=== PATIENT | male | born 1945 | race Caucasian/White ===

== ENCOUNTER → 2017-02-27 | Day surgery (SDC) | payer MEDICARE, BC ==
[~2017-02-27] MED LIST: AMIT25TA9 PO; CIAL5TAB PO; DICL1GEL TOPICAL; EXTRTAB5 PO; FELO5TAB PO; LIDOCAINE HCL 1% PF 30 ML VIAL NERV BLOCK ONE; META800T81 PO; MULT-6 PO; OMEP20TA PO; PROPOFOL 200 MG/20 ML AMP IV ONE; SODIUM CHLORIDE 0.9% 10 ML VIAL ONE; TAMS5CAP PO; TIZA4TAB PO; TRIAMCINOLONE ACETONIDE 40 MG/ML VIAL NERV BLOCK ONE; VYTO10TA8 PO; methylPREDNISolone ACETATE 40 MG/ML VIAL NERV BLOCK ONE
--- NOTE | 2017-02-28 06:52 | M6 ---
cc: LISA KRAMER M.D. DATE: 02/27/2017 DATE OF : 1945 PROCEDURE Right piriformis / sciatic nerve block. History and physical was completed and signed. Consent was signed. Procedure site was marked. Medications were listed and reconciled. Pain score was recorded. Allergies were noted. Time out was taken. Fluoroscopy time was recorded where applicable. Sedation was administered or directed by Dr. Kramer. The patient was given oxygen. The patient was monitored by a registered nurse. Total procedure time was greater than 15 minutes. IV was started, blood pressure cuff, pulse ox screed operator and EKG were applied. The patient was placed in the prone position on a Tom table sedated with small amounts of propofol titrated to effect. Vital signs were monitored and remained stable throughout the procedure. The right hip and buttocks area was prepped with alcohol and 10% Betadine solution and draped with sterile drapes. Fluoroscopy was used to visualize the sciatic notch and the right acetabulum. Then a 3-1/2-inch 22-gauge spinal needle was advanced down to the cephalad portion of the acetabulum slightly lateral to the sciatic notch. There was negative aspiration for blood or any other type of fluid and the patient was given 10 mL of half percent Xylocaine 40 mg of Depo-Medrol and 20 mg of Kenalog. Following the procedure the patient was taken to the recovery room with stable vital signs neurologically intact as W. MD JOAN Jones/marcos /7:54 AM /6:46 AM
== END | disposition home or self-care (01) ==
LOC: PHSDC 06:35
PROVIDERS: ATTEND Pain Medicine Interventional Pain Medicine
DX: M54.89 Other dorsalgia (principal); M79.661 Pain in right lower leg
CPT/HCPCS: 64445; 77003; 99152; J1030; J3301

== ENCOUNTER → 2017-08-11 | Day surgery (SDC) | payer MEDICARE, BC ==
[~2017-08-11] MED LIST changes: +BUPIVACAINE HCL PF 0.75% 30 ML VIAL ONE; +FLEXGEL TOPICAL; -LIDOCAINE HCL 1% PF 30 ML VIAL NERV BLOCK ONE; -META800T81 PO; -SODIUM CHLORIDE 0.9% 10 ML VIAL ONE; +TRIAMCINOLONE ACETONIDE 40 MG/ML VIAL I-ARTICULR ONE; -TRIAMCINOLONE ACETONIDE 40 MG/ML VIAL NERV BLOCK ONE; +methylPREDNISolone ACETATE 40 MG/ML VIAL I-ARTICULR ONE; -methylPREDNISolone ACETATE 40 MG/ML VIAL NERV BLOCK ONE
--- NOTE | 2017-08-11 20:57 | M6 ---
cc: [place] KRAMER DATE 08/11/2017 DATE OF 1945 PROCEDURE Fluoroscopically guided injection bilateral L4-5 and L5-S1 facet joints. Mr. Hayes has left greater than right low back pain. He has increased pain with standing and walking. He also has increased pain leaning forward. He is tender to palpation over the left greater than right lumbar facet joints. He has had a previous x-ray which showed some moderate facet joint degenerative changes at L4-5 and L5-S1. IMPRESSION Bilateral lumbar facet joint arthropathy. PLAN Fluoroscopically guided injection bilateral lumbar facet joints at L4-5 and L5-S1 please use. History and physical was completed and signed. Consent was signed. Procedure site was marked. Medications were listed and reconciled. Pain score was recorded. Allergies were noted. Time out was taken. Fluoroscopy time was recorded where applicable. Sedation was administered or directed by Dr. Kramer. The patient was given oxygen. The patient was monitored by a registered nurse. Total procedure time was greater than 15 minutes. PROCEDURE IN DETAIL IV was started, blood pressure cuff, pulse oximeter and EKG were applied. The patient was placed in the prone position on a Tom table sedated with small amounts of propofol titrated to effect. Vital signs were monitored and remained stable throughout the procedure. THE lumbar area was prepped with alcohol and 10% Betadine solution and draped with sterile drapes. Fluoroscopy was used in a Tony dog view to clearly visualize the bilateral lumbar facet joints at L4-5 and L5-S1. Separate sterile 3-1/2-inch 25-gauge spinal needles were advanced into these joints under fluoroscopic guidance. There was negative aspiration for blood or any other type of fluid. At each location, the patient was given 1 mL of Marcaine 0.75% which contained 10 mg of Kenalog. Following the procedure, the patient was taken to the recovery room with stable vital signs neurologically intact. He will be evaluated immediately and with followup to determine if he has a subjective decrease in his usual pain and a corresponding objective increase in his functional capabilities. MD JOAN Garnett/ /9:51 AM /8:47 PM
== END | disposition home or self-care (01) ==
LOC: PHSDC 07:57
PROVIDERS: ATTEND Pain Medicine Interventional Pain Medicine
DX: M54.5 Low back pain (principal)
CPT/HCPCS: 64493; 64494; 99152; J1030; J3301

== ENCOUNTER → 2017-09-24 | Day surgery (SDC) | payer MEDICARE, BC ==
[~2017-09-24] MED LIST changes: -BUPIVACAINE HCL PF 0.75% 30 ML VIAL ONE; +CYANOCOBALAMIN 1000 MCG/ML VIAL IM ONE; -EXTRTAB5 PO; +LIDOCAINE HCL 1% PF 30 ML VIAL INFIL ONE; -MULT-6 PO; -OMEP20TA PO; +OMEP20TA93 PO; +PHAR500T3 PO; +SODIUM CHLORIDE 0.9% 10 ML VIAL ONE; -TRIAMCINOLONE ACETONIDE 40 MG/ML VIAL I-ARTICULR ONE; +TRIAMCINOLONE ACETONIDE 40 MG/ML VIAL NERV BLOCK ONE; +VOLT1GEL16 TOPICAL
--- NOTE | 2017-09-24 13:28 | M6 ---
cc: LISA KRAMER M.D. DATE: 09/24/2017 DATE OF : 1945 PROCEDURE Fluoroscopically guided right piriformis / sciatic nerve injection. History and physical was completed and signed. Consent was signed. Procedure site was marked. Medications were listed and reconciled. Pain score was recorded. Allergies were noted. Time out was taken. Fluoroscopy time was recorded where applicable. Sedation was administered or directed by Dr. Kramer. The patient was given oxygen. The patient was monitored by a registered nurse. Total procedure time was greater than 15 minutes. IV was started, blood pressure cuff, pulse oximeter and EKG were applied. The patient was placed in the prone position on a Tom table sedated with small amounts of propofol titrated to effect. Vital signs were monitored and remained stable throughout the procedure the skin and the right buttocks area was prepped with alcohol and draped with sterile drapes and sprayed with Betadine and then a 5-inch 22-gauge spinal needle was advanced down to the dorsal cephalad one third of the acetabulum slightly medial toward the sciatic notch. There was negative aspiration for blood or any other type of fluid and at that location the patient was given 10 mL of half percent Xylocaine 20 mg of Depo-Medrol 20 mg of Kenalog. Following the procedure the patient was taken to the recovery room with stable vital signs neurologically intact. W. MD JOAN Jones/marcos /11:29 AM /1:18 PM
== END | disposition home or self-care (01) ==
LOC: PHSDC 09:18
PROVIDERS: ATTEND Pain Medicine Interventional Pain Medicine
DX: M54.89 Other dorsalgia (principal); M79.661 Pain in right lower leg
CPT/HCPCS: 64445; 99152; J1030; J3301; J3420